=== PATIENT | male | born 1995 | race Two or more races ===

== ENCOUNTER 2017-11-01 19:18 | Emergency (ER) | payer MEDICAID ==
[~2017-11-01] VITALS: Ht 162.6 cm; Wt 81.6 kg
[2017-11-01 20:30] LABS: Basophils # (auto) 0.1 uL; Eosinophils # (auto) 0.1 uL; Eosinophils % (auto) 0.5 % (0.0-7.0); Mean Corpuscular Volume 84.6 fL (80.0-100.0); White Blood Cell 13.8 10^3/uL (4.4-10.8)
[2017-11-01 20:33] LABS: Basophils % (auto) 1.1 % (0.0-2.0); Hematocrit 46.2 % (41.0-53.0); Hemoglobin 14.9 g/dL (13.5-17.5); Lymphocytes # (auto) 1.7 uL; Lymphocytes % (auto) 12.4 % (10.0-50.0); Mean Corpuscular Hemoglobin 27.3 pg (28.0-32.0); Mean Corpuscular Hgb Conc. 32.3 g/dL (32.0-36.0); Monocytes # (auto) 1.9 uL; Monocytes % (auto) 13.8 % (0.0-12.0); Neutrophils % (auto) 72.2 % (37.0-80.0); Nucleated Red Blood Cells % 0.4 %; Platelet Count (auto) 310 10^3/uL (140-450); Red Blood Cells 5.46 10^6/uL (4.5-5.90)
[2017-11-01 20:34] LABS: Urine Bacteria NONE SEEN /hpf (None Seen); Urine Blood Negative /uL (Negative); Urine WBC 1 /hpf (0 - 3)
[2017-11-01 20:58] LABS: Alanine Aminotransferase 71 U/L (16-61); Albumin 3.5 g/dL (3.4-5.0); Alkaline Phosphatase 141 U/L (45-117); Anion Gap 8 (5-15); Aspartate Aminotransferase 43 U/L (15-37); BUN/Creatinine Ratio 17.9; Bilirubin, Total 0.2 mg/dL (0.2-1.0); Blood Urea Nitrogen 19 mg/dL (7-18); Calcium 8.5 mg/dL (8.5-10.1); Carbon Dioxide 22 mmol/L (21-32); Chloride 109 mmol/L (98-107); GFR African American 112 mL/min; GFR Non-African American 93 mL/min; Glucose 89 mg/dL (74-106); Magnesium 2.3 mg/dL (1.6-2.6); Potassium 3.9 mmol/L (3.5-5.1); Sodium 139 mmol/L (136-145); Total Protein 7.7 g/dL (6.4-8.2)
[2017-11-01 21:53] LABS: INR 0.88 (0.9-1.15); Partial Thromboplastin Time 26.8 sec (22.64-33.71); Prothrombin Time 9.6 sec (9.37-12.3)
[2017-11-01 23:07] VITALS: BP 135/75
== END 2017-11-02 00:23 | disposition home or self-care (01) ==
LOC: ER 19:18
DX: S46.912A Strain of unspecified muscle, fascia and tendon at shoulder and upper arm level, left arm, initial encounter (principal); F12.10 Cannabis abuse, uncomplicated; Z88.0 Allergy status to penicillin; Z88.1 Allergy status to other antibiotic agents; Z88.8 Allergy status to other drugs, medicaments and biological substances; X58.XXXA Exposure to other specified factors, initial encounter; Y93.89 Activity, other specified; Y99.8 Other external cause status; Y92.89 Other specified places as the place of occurrence of the external cause
CPT/HCPCS: 36415; 71045; 73200; 80053; 81001; 83735; 84484; 85025; 85379; 85610; 85730; 93005

== ENCOUNTER 2019-03-24 14:31 | Emergency (ER) | payer MEDICAID ==
[~2019-03-24] VITALS: Ht 160 cm; Wt 81.6 kg
[2019-03-24 15:46] LABS: Hematocrit 33.3 % (41.0-53.0)
[2019-03-24 15:47] LABS: Mean Corpuscular Hemoglobin 30.8 pg (28.0-32.0); Mean Corpuscular Hgb Conc. 32.9 g/dL (32.0-36.0); Mean Corpuscular Volume 93.6 fL (80.0-100.0); Platelet Count (auto) 583 10^3/uL (140-450); Red Blood Cells 3.56 10^6/uL (4.5-5.90); Red Cell Distribution Width 17.4 % (11.8-14.3); White Blood Cell 8.1 10^3/uL (4.4-10.8)
[2019-03-24 15:52] LABS: Basophils % (manual) 0 (0.0-2.0); Blast Cells 0; Eosinophils % (manual) 0 (0-7); Myelocytes % 0; Promyelocytes % 0; Reactive Lymphocytes 0
[2019-03-24 16:01] LABS: Albumin 3.5 g/dL (3.4-5.0); Anion Gap 8 (5-15); Blood Urea Nitrogen 17 mg/dL (7-18); Calcium 9.3 mg/dL (8.5-10.1); Carbon Dioxide 24 mmol/L (21-32); Chloride 103 mmol/L (98-107); Glucose 156 mg/dL (74-106); Potassium 4.5 mmol/L (3.5-5.1); Sodium 135 mmol/L (136-145)
[2019-03-24 16:06] LABS: Alanine Aminotransferase 104 U/L (16-61); Alkaline Phosphatase 249 U/L (45-117); Aspartate Aminotransferase 83 U/L (15-37); BUN/Creatinine Ratio 19.1; Bilirubin, Total 0.2 mg/dL (0.2-1.0); GFR African American 135 mL/min; GFR Non-African American 112 mL/min; Total Protein 7.9 g/dL (6.4-8.2)
[2019-03-24 16:18] LABS: INR < 0.93 (0.9-1.15); Partial Thromboplastin Time 27.9 sec (23.64-32.05)
[2019-03-24] MEDS ORDERED: SODIUM CHLORIDE 0.9% 1,000 ML IV ONE (16:30)
[2019-03-24 16:39] LABS: Band Neutrophils % (manual) 3; Lymphocytes % (manual) 14 (10.0-50.0); Metamyelocytes % 1; Monocytes % (manual) 9 (0-12)
[2019-03-24] MEDS ORDERED: MORPHINE SULFATE 4 MG/ML SYR/VIAL IV ONE (16:45)
[2019-03-24] MEDS ORDERED: ONDANSETRON HCL 4 MG/2 ML VIAL IV ONE (16:45)
[2019-03-24 18:04] VITALS: BP 124/77
== END 2019-03-24 16:48 | disposition home or self-care (01) ==
LOC: ER 14:35
DX: R07.89 Other chest pain (principal); C92.00 Acute myeloblastic leukemia, not having achieved remission; Z88.0 Allergy status to penicillin; Z88.1 Allergy status to other antibiotic agents; Z88.6 Allergy status to analgesic agent
CPT/HCPCS: 36415; 71046; 80053; 84484; 85007; 85027; 85610; 85730; 93005; 94761; 96374; 96375; 99284; J2270; J2405; J7030

== ENCOUNTER 2019-06-19 13:12 | Inpatient (IN) | payer MEDICAID ==
[~2019-06-19] VITALS: Ht 157.5 cm; Wt 79.3 kg
[2019-06-19] MEDS ORDERED: SODIUM CHLORIDE 0.9% 1,000 ML IV ONE ×2 (13:33→13:45)
[2019-06-19] MEDS ORDERED: ONDANSETRON HCL 4 MG/2 ML VIAL IV ONE (13:45)
[2019-06-19] MEDS ORDERED: MORPHINE SULFATE 4 MG/ML SYR/VIAL IV ONE (13:45)
[2019-06-19] MEDS ORDERED: ACETAMINOPHEN 500 MG TAB PO ONE (14:30)
[2019-06-19 14:51] LABS: Albumin 3.3 g/dL (3.4-5.0); BUN/Creatinine Ratio 16.4; Calcium 8.8 mg/dL (8.5-10.1); Magnesium 1.7 mg/dL (1.6-2.6)
[2019-06-19 14:54] LABS: Bilirubin, Total 0.3 mg/dL (0.2-1.0)
[2019-06-19 15:53] LABS: Basophils # (auto) 0 uL; Eosinophils # (auto) 0.1 uL; Lymphocytes # (auto) 0.2 uL; Nucleated Red Blood Cells % 0.5 %
[2019-06-19 16:00] LABS: Eosinophils % (auto) 0.9 % (0.0-7.0); Hemoglobin 8.8 g/dL (13.5-17.5); Lymphocytes % (auto) 2.1 % (10.0-50.0); Mean Corpuscular Hemoglobin 29.6 pg (28.0-32.0); Mean Corpuscular Hgb Conc. 32.8 g/dL (32.0-36.0); Mean Corpuscular Volume 90.3 fL (80.0-100.0); Monocytes % (auto) 9.9 % (0.0-12.0); Neutrophils # (auto) 9.1 uL; Neutrophils % (auto) 87.1 % (37.0-80.0); Platelet Count (auto) 513 10^3/uL (140-450); Red Blood Cells 2.98 10^6/uL (4.5-5.90); Red Cell Distribution Width 19.5 % (11.8-14.3); White Blood Cell 10.4 10^3/uL (4.4-10.8)
[2019-06-19] MEDS ORDERED: IBUPROFEN 600 MG TAB PO ONE (16:00)
[2019-06-19] MEDS ORDERED: LACTULOSE 20Gm/30ML SOLN PO PRN (19:00)
[2019-06-19] MEDS ORDERED: MORPHINE SULF INJ 2 MG/ML SYRINGE 1ML IV PRN (19:00)
[2019-06-19] MEDS ORDERED: NITROGLYCERIN 0.4 MG SL TAB SL PRN (19:00)
[2019-06-19] MEDS ORDERED: ACETAMINOPHEN 500 MG TAB PO PRN (19:00)
[2019-06-19] MEDS ORDERED: LEVOFLOXACIN 500MG 100 ML IV ONE (19:00)
[2019-06-19 19:31] LABS: Urine Bacteria NONE SEEN /hpf (None Seen); Urine Blood 1+ /uL (Negative); Urine Specific Gravity 1.022 (1.001-1.035); Urine WBC 2 /hpf (0 - 3)
[2019-06-19 20:03] LABS: CRP High Sensitivity 6.73 mg/dL (< 0.3)
[2019-06-19] MEDS: SODIUM CHLORIDE 0.9% 1,000 ML IV SCH (20:11)
[2019-06-19 20:25] VITALS: BP 156/80
--- NOTE | 2019-06-19 20:25 | NUR ---
Telemetry admit from [facility] admitted to Telemetry unit after SBAR received. Patient oriented to Deedee santana RN, unit, room, bed, and unit policies regarding patient care and visiting hours. Patient now on continuous telemetry monitoring, tele box # [id number] and telemetry reading on arrival to unit is sinus tach.[id number]. Patient placed on bedside oxygen, weighed by bed scale and encouraged to call if they need something. All questions and concerns addressed, patient verbalized understanding. Note:Came per bed awake ,alert oriented x 4, placed in the bed comfortably, vital signs checked.
[2019-06-19] MEDS: metroNIDAZOLE 500MG/100ML 100 ML IV SCH (21:36)
[2019-06-19] MEDS: METHADONE HCL 10 MG TAB PO SCH (21:36)
[2019-06-19] MEDS: SULFAMETHOX W/TRIMETH(800/160MG) DS TAB PO SCH (21:48)
--- NOTE | 2019-06-19 22:00 | NUR ---
Picture taken in the wound in the abdomen, dressing done with wound cleanser and covered with optifoam dressing, patient said its the surgical site that gets infected.
[2019-06-19] MEDS: HYDROmorphone HCL 2 MG/ML VL IV PRN (22:13)
[2019-06-19] MEDS: PROMETHAZINE HCL 25 MG/ML 1ML IV PRN (22:14)
[2019-06-20] MEDS ORDERED: BUTACAP OR (01:08)
[2019-06-20] MEDS ORDERED: METF500S PO (01:08)
[2019-06-20] MEDS ORDERED: LEVO-28 PO (01:08)
[2019-06-20] MEDS ORDERED: CYCL0.05 EACHEYE (01:08)
[2019-06-20] MEDS ORDERED: HYDR8TAB46 PO (01:08)
[2019-06-20] MEDS ORDERED: SENN1TAB5 PO (01:08)
[2019-06-20] MEDS ORDERED: CYCL1TAB18 PO (01:08)
[2019-06-20] MEDS ORDERED: DRON10CA8 PO (01:08)
[2019-06-20] MEDS ORDERED: ONDA-143 PO (01:08)
[2019-06-20] MEDS ORDERED: PREG150C PO (01:08)
[2019-06-20] MEDS ORDERED: ATOR10TA52 PO (01:08)
[2019-06-20] MEDS ORDERED: METF-489 PO (01:08)
[2019-06-20] MEDS ORDERED: BIOT5TAB3 PO (01:08)
[2019-06-20] MEDS ORDERED: FLUT500M2 INH (01:08)
[2019-06-20] MEDS ORDERED: SULF800T7 PO (01:08)
[2019-06-20] MEDS ORDERED: MONT10TA34 PO (01:08)
[2019-06-20] MEDS ORDERED: HYDR2.5L TOP (01:08)
[2019-06-20] MEDS ORDERED: BISA-4 PO (01:08)
[2019-06-20] MEDS ORDERED: CHOL20007 PO (01:08)
[2019-06-20] MEDS ORDERED: POSA1TAB PO (01:08)
[2019-06-20] MEDS ORDERED: LACT10SO3 PO (01:08)
[2019-06-20] MEDS ORDERED: LEV100T PO (01:08)
[2019-06-20] MEDS ORDERED: [UNRECOGNIZED DRUG - CODE] PO (01:08)
[2019-06-20] MEDS ORDERED: ALBU108A5 IN (01:08)
[2019-06-20] MEDS ORDERED: MAGN1POW XX (01:08)
[2019-06-20] MEDS ORDERED: DICL-176 PO (01:08)
[2019-06-20] MEDS ORDERED: ESOM1CAP4 PO (01:08)
[2019-06-20] MEDS ORDERED: POLY33504 PO (01:08)
[2019-06-20] MEDS ORDERED: CLOT1CRE13 TOP (01:08)
[2019-06-20] MEDS ORDERED: METH5TAB2 PO (01:08)
[2019-06-20] MEDS: HYDROmorphone HCL 2 MG/ML VL IV PRN ×4 (02:40→19:58)
[2019-06-20] MEDS: SODIUM CHLORIDE 0.9% 1,000 ML IV SCH ×3 (04:54→15:15)
[2019-06-20 05:00] VITALS: BP 150/91
[2019-06-20] MEDS: metroNIDAZOLE 500MG/100ML 100 ML IV SCH ×2 (05:21→14:53)
[2019-06-20] MEDS: HYDROmorphone HCL 2 MG TAB PO PRN ×3 (05:45→18:10)
[2019-06-20 05:59] LABS: Potassium 4.1 mmol/L (3.5-5.1)
[2019-06-20] MEDS: PROMETHAZINE HCL 25 MG/ML 1ML IV PRN (05:59)
[2019-06-20 06:12] LABS: Albumin 2.8 g/dL (3.4-5.0); BUN/Creatinine Ratio 16.7; Bilirubin, Total 0.3 mg/dL (0.2-1.0); Calcium 7.4 mg/dL (8.5-10.1); Total Protein 6.9 g/dL (6.4-8.2)
--- NOTE | 2019-06-20 07:18 | NUR ---
Report given to Cait Mckeon, patient is resting using his notebook.
[2019-06-20 09:00] VITALS: BP 149/83
[2019-06-20] MEDS: METHADONE HCL 10 MG TAB PO SCH (09:43)
[2019-06-20] MEDS: SULFAMETHOX W/TRIMETH(800/160MG) DS TAB PO SCH (09:44)
[2019-06-20 09:54] LABS: Basophils # (auto) 0 uL; Basophils % (auto) 0.2 % (0.0-2.0); Eosinophils # (auto) 0.2 uL; Eosinophils % (auto) 1.5 % (0.0-7.0); Hematocrit 29.4 % (41.0-53.0); Hemoglobin 9.7 g/dL (13.5-17.5); Lymphocytes # (auto) 0.3 uL; Lymphocytes % (auto) 2.6 % (10.0-50.0); Mean Corpuscular Hemoglobin 29.9 pg (28.0-32.0); Mean Corpuscular Volume 90.7 fL (80.0-100.0); Monocytes # (auto) 1.1 uL; Neutrophils # (auto) 9.1 uL; Neutrophils % (auto) 85.7 % (37.0-80.0); Nucleated Red Blood Cells % 0.2 %; Platelet Count (auto) 541 10^3/uL (140-450); Red Blood Cells 3.25 10^6/uL (4.5-5.90); Red Cell Distribution Width 19.4 % (11.8-14.3); White Blood Cell 10.6 10^3/uL (4.4-10.8)
[2019-06-20] MEDS ORDERED: PANTOPRAZOLE 40 MG TAB PO SCH ×2 (10:00→22:00)
[2019-06-20] MEDS ORDERED: LEVOFLOXACIN 500MG 100 ML IV SCH (10:00)
--- NOTE | 2019-06-20 10:42 | NUR ---
WOUND CARE NOTE: Wound care in to see patient per wound care request "abdominal wall wound" that are noted present on admission. Bedside nurse took photograph of patient's wound upon admission for reference. Patient is 24 y/o male admitted for Abdominal Pain. Patient with history of CA, DM, high lipids. Patient is resting in bed in Rm. 271. Patient is awake,alert and oriented. He's in no stated pain at this time. Dr. Jones arrived at bedside to examine patient and to see the abdominal wound. Patient is self turn and reposition. His current Gj score is 20 Patient's anterior medial abdomen has 13x8cm pink collagen scar tissue with open wound measuring 9x4cm. Wound bed is pink/red, minimal serous drainage noted, no odor noted. Patient states that he had abdominal surgery "on December last year for popped ulcer". He added that "it got infected and they cleaned again". He added that he has home health nurse that change his abdominal wound dressing every "Saturday, Saturday and Saturday". Cleansed patient's abdominal wound with wound cleanser, patted dry with sterile gauze, applied Thera honey gauze to open wound, covered with abd pad and secured with Primapore tape. Patient tolerated well. Dr. Jones and YIMI Mendenhall at bedside. RECOMMENDATION: Nursing to continue EOD/PRN dressing change to abdominal wound per MD order, Dietary consult due to presence of wound, redistribute pressure points with pillows,continue monitoring by wound care while patient is hospitalized. Addendum: 06/20/19 at 1706 by Sammie Pugh RN Amended: Links added.
[2019-06-20 13:00] VITALS: BP 148/95
--- NOTE | 2019-06-20 13:20 | NUR ---
SPOKE TO ZEV INTEGRATION CONSULTANT ABOUT TRANSFER TO [facility]. [facility] ACCEPTING PH[address]IAN [address] LOVE. ZEV SAID SHE HAS TO GET AUTHORIZATION FROM INSURANCE FIRST. SHE WILL CALL ME BACK.
--- NOTE | 2019-06-20 13:55 | NUR ---
SPOKE TO ZEV WIRE DRAWING SETTER. SHE SAID SHE HAS AUTHORIZATION TO TRANSFER PATIENT BUT NO BED IS AVAILABLE AT THIS TIME. SHE WILL ALSO PUT PATIENT ON WILL CALL FOR [facility].
--- NOTE | 2019-06-20 16:11 | NUR ---
Weekend chief construction inspector-I received a page from nurse Mendenhall letting me know that this patient has order to transfer to [facility]. I called [facility] [phone] and spoke with Nadine in admitting. Requested items faxed by nurse Mendenhall to [phone]. I spoke with Sarah-[facility] Ekg Technician-she provided me with [facility] authorization number for [facility] [id number], and auth number for [facility] is [id number]. I provided [facility] with [facility] authorization number, I also placed [facility] on will call-provided them with the [facility] auth number [id number]. Per [facility] they will call nurse's station when bed becomes available-I relayed this information to nurse Mendenhall.
[2019-06-20 17:00] VITALS: BP 162/79
--- NOTE | 2019-06-20 17:24 | NUR ---
SPOKE TO PATIENT'S MOM WHO IS AT BEDSIDE INFORMED HER WE ARE JUST WAITING FOR A BED TO BE AVAILABLE THEN WE WILL TRANSPORT [facility]IA [facility] TO [facility] WITH ACCEPTING PHYSICIAN DR LOVE. PATIENT'S MOM VERBALIZED UNDERSTANDING.
--- NOTE | 2019-06-20 18:33 | NUR ---
CALLED REPORT TO SONYA Slater AT [facility]. BED [phone]
--- NOTE | 2019-06-20 19:09 | NUR ---
CALLED [facility] THEY WILL RAILROAD DINING CAR STEWARD/STEWARDESS PATIENT AT 19:40
--- NOTE | 2019-06-20 19:58 | NUR ---
GAVE REPORT TO [facility] ASSOCIATE BROKER MYNOR. ALL QUESTIONS ANSWERED MOM AT BEDSIDE AND WILL RIDE IN THE AMBULANCE WITH PATIENT TO [facility]. NO SIGNS OF DISTRESS.
== END 2019-06-20 20:00 | disposition short-term general hospital (02) | DRG 251 ==
LOC: ER 13:12 → TELE 13:13 → TELE-WESTW 20:31
PROVIDERS: ADMIT Internal Medicine; ATTEND Internal Medicine
DX: R10.11 Right upper quadrant pain (principal); D69.6 Thrombocytopenia, unspecified; E44.0 Moderate protein-calorie malnutrition; Z94.81 Bone marrow transplant status; E86.0 Dehydration; D63.8 Anemia in other chronic diseases classified elsewhere; E11.9 Type 2 diabetes mellitus without complications; F12.90 Cannabis use, unspecified, uncomplicated; G89.4 Chronic pain syndrome; E78.5 Hyperlipidemia, unspecified; E66.9 Obesity, unspecified; M25.519 Pain in unspecified shoulder; R31.9 Hematuria, unspecified; M25.559 Pain in unspecified hip; R50.9 Fever, unspecified; Z90.49 Acquired absence of other specified parts of digestive tract; Z88.0 Allergy status to penicillin; Z87.11 Personal history of peptic ulcer disease; Z88.1 Allergy status to other antibiotic agents; Z88.8 Allergy status to other drugs, medicaments and biological substances; Z68.32 Body mass index [BMI] 32.0-32.9, adult
CPT/HCPCS: 36415; 71045; 73020; 73060; 74176; 76705; 80053; 81001; 82150; 83605; 83690; 83735; 85007; 85025; 85027; 85652; 86141; 87040; 87086; 93005; 96361; 96365; 96375; G0378; J1956; J2405; J3490

== ENCOUNTER 2020-02-08 13:19 | Emergency (ER) | payer MEDICAID ==
[~2020-02-08] VITALS: Ht 157.5 cm; Wt 75.7 kg
[~2020-02-08 13:19] MED LIST: ALBU108A5 IN; ATOR10TA52 PO; BIOT5TAB3 PO; BISA-4 PO; BUTACAP OR; CHOL20007 PO; CLOT1CRE13 TOP; CYCL0.05 EACHEYE; CYCL10TA6 PO; DICL-176 PO; DRON10CA8 PO; ESOM1CAP4 PO; FLUT500M2 INH; HYDR2.5L TOP; HYDR8TAB46 PO; LACT10SO3 PO; LEV100T PO; LEVO-28 PO; MAGN1POW XX; METF-489 PO; METF500S PO; METH5TAB2 PO; MONT10TA34 PO; ONDA-143 PO; POLY33504 PO; POSA1TAB PO; PREG150C PO; SULF800T7 PO; [UNRECOGNIZED DRUG - CODE] PO; [UNRECOGNIZED DRUG - CODE] PO
[2020-02-08 14:48] LABS: Hematocrit 27.6 % (41.0-53.0); Hemoglobin 8.9 g/dL (13.5-17.5); Mean Corpuscular Hemoglobin 29.1 pg (28.0-32.0); Mean Corpuscular Hgb Conc. 32.3 g/dL (32.0-36.0); Mean Corpuscular Volume 90.1 fL (80.0-100.0); Platelet Count (auto) 337 10^3/uL (140-450); Red Blood Cells 3.06 10^6/uL (4.5-5.90); White Blood Cell 10.8 10^3/uL (4.4-10.8)
[2020-02-08 14:52] LABS: Red Cell Distribution Width 20.8 % (11.8-14.3)
[2020-02-08 14:54] LABS: Basophils % (manual) 0 (0.0-2.0); Blast Cells 0; Promyelocytes % 0; Reactive Lymphocytes 0
[2020-02-08 15:00] LABS: Urine Bacteria NONE SEEN /hpf (None Seen); Urine Blood Negative /uL (Negative); Urine Specific Gravity 1.027 (1.001-1.035); Urine WBC 2 /hpf (0 - 3)
[2020-02-08 15:05] LABS: Amylase 30 U/L (25-115); Lipase 207 U/L (73-393)
[2020-02-08 15:10] LABS: Albumin 3.3 g/dL (3.4-5.0); BUN/Creatinine Ratio 16.7; Calcium 9.2 mg/dL (8.5-10.1); Potassium 4.4 mmol/L (3.5-5.1)
[2020-02-08 15:12] LABS: Bilirubin, Total 0.2 mg/dL (0.2-1.0); Total Protein 7.8 g/dL (6.4-8.2)
[2020-02-08 16:21] LABS: Band Neutrophils % (manual) 5; Eosinophils % (manual) 1 (0-7); Lymphocytes % (manual) 4 (10.0-50.0); Metamyelocytes % 1; Monocytes % (manual) 6 (0-12); Myelocytes % 1
[2020-02-08] MEDS ORDERED: InsuLIN REG 1unit/0.01ml Soln (100units/ml) SC ONE (21:30)
[2020-02-08] MEDS ORDERED: HYDROmorphone HCL 2 MG/ML VL IM ONE (21:30)
[2020-02-08] MEDS ORDERED: ONDANSETRON ODT 4 MG TAB PO ONE (21:30)
[2020-02-08 22:55] VITALS: BP 127/83
== END 2020-02-08 23:14 | disposition home or self-care (01) ==
LOC: ER 13:19
DX: R10.31 Right lower quadrant pain (principal); E11.65 Type 2 diabetes mellitus with hyperglycemia; G89.29 Other chronic pain; E78.5 Hyperlipidemia, unspecified; Z90.89 Acquired absence of other organs; Z79.899 Other long term (current) drug therapy; Z88.1 Allergy status to other antibiotic agents; Z88.0 Allergy status to penicillin
CPT/HCPCS: 36415; 74176; 80053; 81001; 82150; 82962; 83690; 85007; 85027; 96372; 99284; J1170; Q0162

== ENCOUNTER 2020-08-12 13:28 | Inpatient (IN) | payer MEDICAID ==
[~2020-08-12] VITALS: Ht 160 cm; Wt 66.8 kg
[~2020-08-12 13:28] MED LIST changes: -DICL-176 PO; +DICL75TA3 PO; +SENN-180 PO; -[UNRECOGNIZED DRUG - CODE] PO
[2020-08-12 15:14] LABS: Basophils # (auto) 0 10 ^3/uL (0-0.2); Eosinophils # (auto) 0.1 10 ^3/uL (0-0.8); Eosinophils % (auto) 1.3 % (0.0-7.0); Neutrophils # (auto) 7.6 10 ^3/uL (1.6-8.6); Nucleated Red Blood Cells % 0.7 %; White Blood Cell 9.5 10^3/uL (4.4-10.8)
[2020-08-12 15:16] LABS: Hematocrit 23.6 % (41.0-53.0); Lymphocytes # (auto) 0.6 10 ^3/uL (0.4-5.4); Lymphocytes % (auto) 6.8 % (10.0-50.0); Mean Corpuscular Hemoglobin 31.8 pg (28.0-32.0); Mean Corpuscular Hgb Conc. 33.9 g/dL (32.0-36.0); Mean Corpuscular Volume 93.7 fL (80.0-100.0); Monocytes # (auto) 1.1 10 ^3/uL (0-1.3); Monocytes % (auto) 11.9 % (0.0-12.0); Platelet Count (auto) 316 10^3/uL (140-450); Red Blood Cells 2.52 10^6/uL (4.5-5.90)
[2020-08-12 15:29] LABS: Albumin 3.3 g/dL (3.4-5.0); Calcium 8.8 mg/dL (8.5-10.1); Potassium 4.1 mmol/L (3.5-5.1)
[2020-08-12 15:32] LABS: Bilirubin, Total 0.4 mg/dL (0.2-1.0); Total Protein 7.7 g/dL (6.4-8.2)
[2020-08-12] MEDS ORDERED: IOHEXOL 350 MG/ML 100ML IJ ONE (15:55)
[2020-08-12] MEDS ORDERED: ENOXAPARIN SOD 80 MG/0.8ML SYRINGE SC ONE (17:00)
[2020-08-12] MEDS ORDERED: DOCUSATE SOD 100 MG CAP PO PRN (19:45)
[2020-08-12] MEDS ORDERED: ALUM & MAG HYDROX-SIMETH LIQ(MAALOX) 30 ML PO PRN (19:45)
[2020-08-12] MEDS ORDERED: MORPHINE SULF INJ 2 MG/ML SYRINGE 1ML IV PRN ×2 (19:45)
[2020-08-12] MEDS ORDERED: HYDROcodone-ACET 5/325MG TAB PO PRN (19:45)
[2020-08-12] MEDS ORDERED: LORazepam 0.5 MG TAB PO PRN (19:45)
[2020-08-12] MEDS ORDERED: NITROGLYCERIN 0.4 MG SL TAB SL PRN ×2 (19:45)
[2020-08-12 21:18] LABS: Cholesterol 276 mg/dL (< 200); HDL Cholesterol 41 mg/dL (40-59); Triglycerides 483 mg/dL (< 150)
[2020-08-12] MEDS: MORPHINE SULF INJ 2 MG/ML SYRINGE 1ML IV PRN (22:02)
[2020-08-12] MEDS: SODIUM CHLORIDE 0.9% 1,000 ML IV SCH (22:02)
[2020-08-13] MEDS: ENOXAPARIN SOD 80 MG/0.8ML SYRINGE SC SCH ×2 (06:00→18:41)
[2020-08-13] MEDS: MORPHINE SULF INJ 2 MG/ML SYRINGE 1ML IV PRN ×3 (06:39→21:30)
[2020-08-13 07:56] LABS: Basophils # (auto) 0 10 ^3/uL (0-0.2); Basophils % (auto) 0.1 % (0.0-2.0); Eosinophils # (auto) 0.1 10 ^3/uL (0-0.8); Hemoglobin 7.7 g/dL (13.5-17.5); Monocytes # (auto) 1.5 10 ^3/uL (0-1.3); Neutrophils # (auto) 7.3 10 ^3/uL (1.6-8.6); Platelet Count (auto) 308 10^3/uL (140-450); White Blood Cell 9.3 10^3/uL (4.4-10.8)
[2020-08-13 07:57] LABS: Hematocrit 21.8 % (41.0-53.0); Lymphocytes # (auto) 0.4 10 ^3/uL (0.4-5.4); Lymphocytes % (auto) 4.4 % (10.0-50.0); Mean Corpuscular Hemoglobin 32.9 pg (28.0-32.0); Mean Corpuscular Hgb Conc. 35.3 g/dL (32.0-36.0); Mean Corpuscular Volume 93.1 fL (80.0-100.0); Neutrophils % (auto) 78.5 % (37.0-80.0); Nucleated Red Blood Cells % 1.4 %; Red Blood Cells 2.34 10^6/uL (4.5-5.90)
[2020-08-13 08:03] LABS: Red Cell Distribution Width 20.5 % (11.8-14.3)
[2020-08-13 08:30] LABS: INR 0.99 (0.9-1.15); Partial Thromboplastin Time 29.9 sec (23.0-31.2)
[2020-08-13 08:42] LABS: Albumin 3.2 g/dL (3.4-5.0); BUN/Creatinine Ratio 20.8; Calcium 8.6 mg/dL (8.5-10.1); Magnesium 2.3 mg/dL (1.6-2.6); Potassium 3.6 mmol/L (3.5-5.1)
[2020-08-13 08:45] LABS: Bilirubin, Total 0.2 mg/dL (0.2-1.0); Total Protein 7.2 g/dL (6.4-8.2)
[2020-08-13] MEDS: ONDANSETRON HCL 4 MG/2 ML VIAL IV PRN (09:03)
[2020-08-13] MEDS: SODIUM CHLORIDE 0.9% 1,000 ML IV SCH (12:45)
[2020-08-13] MEDS: HYDROmorphone HCL 2 MG/ML VL IV PRN (17:29)
[2020-08-13 20:42] LABS: % Iron Saturation 13.8 % (20-55)
[2020-08-13 22:00] VITALS: BP 142/82
[2020-08-14] MEDS: HYDROmorphone HCL 2 MG/ML VL IV PRN ×5 (00:15→21:56)
[2020-08-14] MEDS: ONDANSETRON HCL 4 MG/2 ML VIAL IV PRN ×2 (02:35→09:15)
[2020-08-14] MEDS: MORPHINE SULF INJ 2 MG/ML SYRINGE 1ML IV PRN (03:29)
[2020-08-14] MEDS ORDERED: diphenhdrAMINE HCL 50 MG/1 ML VL IM ONE (04:15)
[2020-08-14 05:00] VITALS: BP 117/79
[2020-08-14] MEDS: SODIUM CHLORIDE 0.9% 1,000 ML IV SCH ×2 (05:07→21:55)
[2020-08-14] MEDS ORDERED: diphenhdrAMINE HCL 50 MG/1 ML VL IV ONE (05:15)
[2020-08-14] MEDS: ENOXAPARIN SOD 80 MG/0.8ML SYRINGE SC SCH (05:56)
[2020-08-14 08:00] VITALS: BP 136/88
[2020-08-14 08:25] LABS: Basophils # (auto) 0 10 ^3/uL (0-0.2); Eosinophils # (auto) 0.1 10 ^3/uL (0-0.8); Neutrophils # (auto) 9.6 10 ^3/uL (1.6-8.6); White Blood Cell 11.6 10^3/uL (4.4-10.8)
[2020-08-14 08:27] LABS: Basophils % (auto) 0.1 % (0.0-2.0); Eosinophils % (auto) 1.1 % (0.0-7.0); Hematocrit 24.3 % (41.0-53.0); Lymphocytes # (auto) 0.5 10 ^3/uL (0.4-5.4); Mean Corpuscular Hemoglobin 31.3 pg (28.0-32.0); Monocytes # (auto) 1.4 10 ^3/uL (0-1.3); Monocytes % (auto) 12.3 % (0.0-12.0); Neutrophils % (auto) 82.5 % (37.0-80.0); Nucleated Red Blood Cells % 1.6 %; Platelet Count (auto) 329 10^3/uL (140-450); Red Blood Cells 2.56 10^6/uL (4.5-5.90)
[2020-08-14 08:45] LABS: Albumin 3.4 g/dL (3.4-5.0); Calcium 8.9 mg/dL (8.5-10.1); Potassium 3.7 mmol/L (3.5-5.1)
[2020-08-14 08:48] LABS: BUN/Creatinine Ratio 12.9; Bilirubin, Total 0.3 mg/dL (0.2-1.0); Total Protein 7.8 g/dL (6.4-8.2)
[2020-08-14 08:51] LABS: Red Cell Distribution Width 20.7 % (11.8-14.3)
[2020-08-14] MEDS: LORazepam 2MG/ML-1ML VIAL IV PRN ×3 (10:48→20:18)
[2020-08-14] MEDS ORDERED: CYCLOBENZAPRINE HCL 10 MG TAB PO PRN (12:45)
[2020-08-14 16:00] VITALS: BP 135/80
[2020-08-14] MEDS: PREGABALIN CAPSULE 75 MG CAP PO SCH (21:55)
[2020-08-14] MEDS: APIXABAN 5 MG TAB PO SCH (21:55)
[2020-08-14] MEDS ORDERED: DEXTROSE (50%) 50ML SYRG IV PRN (22:30)
[2020-08-15 00:30] VITALS: BP 149/83
[2020-08-15 05:44] VITALS: BP 156/71
[2020-08-15] MEDS: HYDROmorphone HCL 2 MG/ML VL IV PRN ×4 (06:15→19:11)
[2020-08-15] MEDS: InsuLIN REG 1unit/0.01ml Soln (100units/ml) SC SCH ×4 (06:26→22:00)
[2020-08-15] MEDS: ACCU-CHEK COMFORT CURVE STRIP VI SCH ×4 (06:26→22:17)
[2020-08-15] MEDS: LEVOTHYROXINE SODIUM 100 MCG TAB PO SCH (06:33)
[2020-08-15 08:00] VITALS: BP 153/79
[2020-08-15 08:15] LABS: Lymphocytes # (auto) 0.4 10 ^3/uL (0.4-5.4); Neutrophils # (auto) 9.5 10 ^3/uL (1.6-8.6)
[2020-08-15 08:18] LABS: Basophils # (auto) 0.1 10 ^3/uL (0-0.2); Basophils % (auto) 0.5 % (0.0-2.0); Eosinophils # (auto) 0.1 10 ^3/uL (0-0.8); Eosinophils % (auto) 1.3 % (0.0-7.0); Hematocrit 23.2 % (41.0-53.0); Hemoglobin 7.8 g/dL (13.5-17.5); Lymphocytes % (auto) 3.5 % (10.0-50.0); Mean Corpuscular Hemoglobin 31.7 pg (28.0-32.0); Mean Corpuscular Hgb Conc. 33.7 g/dL (32.0-36.0); Mean Corpuscular Volume 94.3 fL (80.0-100.0); Monocytes # (auto) 1.5 10 ^3/uL (0-1.3); Neutrophils % (auto) 81.7 % (37.0-80.0); Nucleated Red Blood Cells % 1.7 %; Platelet Count (auto) 314 10^3/uL (140-450); Red Blood Cells 2.46 10^6/uL (4.5-5.90); White Blood Cell 11.7 10^3/uL (4.4-10.8)
[2020-08-15 08:27] LABS: Red Cell Distribution Width 20.3 % (11.8-14.3)
[2020-08-15 08:32] LABS: Calcium 8.5 mg/dL (8.5-10.1); Potassium 3.4 mmol/L (3.5-5.1)
[2020-08-15 08:35] LABS: BUN/Creatinine Ratio 9.5; Bilirubin, Total 0.3 mg/dL (0.2-1.0); Total Protein 7.1 g/dL (6.4-8.2)
[2020-08-15] MEDS: PREGABALIN CAPSULE 75 MG CAP PO SCH ×2 (10:15→22:17)
[2020-08-15] MEDS ORDERED: POTASSIUM CHLORIDE 20 MEQ, LIDOCAINE 1% (LOCAL ANESTH.) 2 ML in SODIUM CHL 0.9% 100 ML IV ONE (10:15)
[2020-08-15] MEDS ORDERED: levoFLOXacin 500 MG TAB PO ONE (10:15)
[2020-08-15 10:23] LABS: Folate (Folic Acid) > 24.00 ng/mL (5.38-24)
[2020-08-15] MEDS: APIXABAN 5 MG TAB PO SCH ×2 (11:27→22:16)
[2020-08-15] MEDS: SODIUM CHLORIDE 0.9% 1,000 ML IV SCH (14:25)
[2020-08-15 16:00] VITALS: BP 133/98
[2020-08-15] MEDS: LORazepam 2MG/ML-1ML VIAL IV PRN (22:17)
[2020-08-15 22:27] VITALS: BP 140/92
[2020-08-16 05:00] VITALS: BP 125/86
[2020-08-16] MEDS: InsuLIN REG 1unit/0.01ml Soln (100units/ml) SC SCH ×2 (06:24→12:10)
[2020-08-16] MEDS: ACCU-CHEK COMFORT CURVE STRIP VI SCH ×2 (06:24→12:10)
[2020-08-16] MEDS: LEVOTHYROXINE SODIUM 100 MCG TAB PO SCH (06:24)
[2020-08-16] MEDS: HYDROmorphone HCL 2 MG/ML VL IV PRN ×3 (06:50→14:58)
[2020-08-16] MEDS: SODIUM CHLORIDE 0.9% 1,000 ML IV SCH (07:05)
[2020-08-16 09:00] VITALS: BP 117/77
[2020-08-16] MEDS: APIXABAN 5 MG TAB PO SCH (09:57)
[2020-08-16] MEDS: PREGABALIN CAPSULE 75 MG CAP PO SCH (09:58)
[2020-08-16] MEDS ORDERED: levoFLOXacin 500 MG TAB PO SCH (10:00)
[2020-08-16 10:28] LABS: Basophils # (auto) 0.1 10 ^3/uL (0-0.2); Basophils % (auto) 0.5 % (0.0-2.0); Eosinophils # (auto) 0.1 10 ^3/uL (0-0.8); Eosinophils % (auto) 1.1 % (0.0-7.0); Hematocrit 26.4 % (41.0-53.0); Hemoglobin 8.7 g/dL (13.5-17.5); Lymphocytes # (auto) 0.4 10 ^3/uL (0.4-5.4); Lymphocytes % (auto) 3.2 % (10.0-50.0); Mean Corpuscular Hemoglobin 31.5 pg (28.0-32.0); Mean Corpuscular Hgb Conc. 33.1 g/dL (32.0-36.0); Monocytes # (auto) 1.3 10 ^3/uL (0-1.3); Monocytes % (auto) 11.7 % (0.0-12.0); Neutrophils # (auto) 9.4 10 ^3/uL (1.6-8.6); Neutrophils % (auto) 83.5 % (37.0-80.0); Nucleated Red Blood Cells % 2.9 %; Platelet Count (auto) 363 10^3/uL (140-450); Red Blood Cells 2.77 10^6/uL (4.5-5.90); White Blood Cell 11.2 10^3/uL (4.4-10.8)
[2020-08-16 10:46] LABS: Calcium 8.5 mg/dL (8.5-10.1); Potassium 3.4 mmol/L (3.5-5.1)
[2020-08-16 10:51] LABS: BUN/Creatinine Ratio 10.7; Bilirubin, Total 0.3 mg/dL (0.2-1.0); Total Protein 7.5 g/dL (6.4-8.2)
[2020-08-16] MEDS ORDERED: POTASSIUM CHL 20 Meq TABLET PO ONE (11:45)
[2020-08-16] MEDS: LORazepam 2MG/ML-1ML VIAL IV PRN (13:37)
[2020-08-21] MEDS ORDERED: APIXABAN 5 MG TAB PO SCH (22:00)
== END 2020-08-16 16:00 | disposition home or self-care (01) | DRG 134 ==
LOC: ER 13:28 → OVERFLOW 13:29 → TELE-CENTR 08-13 18:14
PROVIDERS: ADMIT Hospitalist; ATTEND Internal Medicine
DX: I26.99 Other pulmonary embolism without acute cor pulmonale (principal); B17.9 Acute viral hepatitis, unspecified; E44.1 Mild protein-calorie malnutrition; K21.9 Gastro-esophageal reflux disease without esophagitis; K29.70 Gastritis, unspecified, without bleeding; E03.9 Hypothyroidism, unspecified; E78.5 Hyperlipidemia, unspecified; G89.4 Chronic pain syndrome; Z94.81 Bone marrow transplant status; Z85.6 Personal history of leukemia; E11.9 Type 2 diabetes mellitus without complications; F11.20 Opioid dependence, uncomplicated; Z79.01 Long term (current) use of anticoagulants; Z79.51 Long term (current) use of inhaled steroids; Z79.84 Long term (current) use of oral hypoglycemic drugs; Z86.711 Personal history of pulmonary embolism; Z88.1 Allergy status to other antibiotic agents; Z88.0 Allergy status to penicillin; D63.8 Anemia in other chronic diseases classified elsewhere; Z90.49 Acquired absence of other specified parts of digestive tract; Z20.822 Contact with and (suspected) exposure to COVID-19
CPT/HCPCS: 36415; 71275; 80053; 80061; 82270; 82607; 82746; 82962; 83036; 83540; 83550; 83735; 84100; 84484; 85025; 85610; 85730; 87040; 87426; 93306; 96372; 99291; G0378; J1815; J2001; J2405

== ENCOUNTER 2024-11-04 19:26 | Inpatient (IN) | payer MEDICARE, MEDICAID ==
[~2024-11-04] VITALS: Ht 157.5 cm; Wt 63.0 kg
[~2024-11-04 19:26] MED LIST changes: -BISA-4 PO; +BISA-65 PO; +BUTA1CAP38 OR; -BUTACAP OR; -CLOT1CRE13 TOP; +CLOT1CRE51 TOP; +CYCL-839 PO; -CYCL10TA6 PO; -HYDR2.5L TOP; +HYDR2.5L4 TOP; -LEV100T PO; -LEVO-28 PO; +LEVO-849 PO; +LEVO500T91 PO; -METF500S PO; +METF500S3 PO; +METH5TAB10 PO; -METH5TAB2 PO; +MONT-8 PO; -MONT10TA34 PO; +SULF800T23 PO; -SULF800T7 PO
--- NOTE | 2024-11-04 19:43 | ED.PDOC ---
History of present illness HPI Comments HPI: 29 year old male presents to the ED with chief complaint of hyperglycemia. Patient reports that he had an appointment today with [facility] for follow up on previous bone marrow transplant and was found to have a BG level of 539. Patient relays that recently over the past few days his BG has been reading from 400-500s, however, the only symptom he has felt has been increased urinary frequency and feeling "hot." Patient states he was advised by [facility] to come to the ED for further evaluation. Patient denies any abdominal pain, N/V/D, dizziness, headache, fever, chills, numbness, or weakness. Initial Vitals: Temp: 99F BP: 139/87 HR: 110 RR: 20 O2 Sat: 97% Medical History: DM, HLD, AML Leukemia, PE, chronic pain syndrome, GVHD Surgical History: Appendectomy, Bilateral hip replacement, bone marrow transplant, Pericardiectomy, peptic ulcer disease surgery with complications and revision. Social History: Denies smoking. Occasional ETOH use, +Marijuana use. Lives at home. Medications: Eliquis, Glipizide, Jardiance Allergies: Penicillin, Amoxicillin, Cefepime, Cephalexin, Metoclopramide, Penicillins, Vancomycin HPI: Poor Historian. Patient denies any symptoms. He was sent here by his doctor's office when he was found with a incidental high blood sugar level. Patient states compliance with his medications. REVIEW OF SYSTEMS: CONSTITUTIONAL: Denies acute: fever, diaphoresis, chills, HEAD: Denies acute: headache, photophobia Eyes: Denies acute: Double vision, vision loss, eye pain, eye discharge. EARS: Denies acute: tinnitus, hearing loss, ear discharge, ear pain, THROAT: Denies acute: sore throat, swelling, difficulty swallowing , pain with swallowing, change in voice. NECK: Denies acute: neck pain, neck swelling, stiff neck. HEART: Denies acute : chest pain, palpitations, LUNGS: Denies acute: SOB, wheezing, cough, hemoptysis ABDOMEN: Denies acute: abdominal pain, Nausea, Vomiting, diarrhea, melena , hematemesis, hematochezia SKIN: Denies acute: rash, redness, lesions, itchiness. EXTREMITIES: Denies acute: calf pain, numbness, tingling, weakness, denies pain in extremity. Denies acute: Low back pain. Neuro: Denies acute: focal neurological deficit, motor or sensory focal neurological deficit, tremors, seizure like activity, confusion, dizziness, change in mental status, loss of bowel or bladder function, cauda equina like symptoms. : Denies acute: dysuria, hematuria, flank pain, increase in urinary frequency. PSYCH: Denies acute: hallucination, suicidal ideation, homicidal ideation. PHYSICAL EXAM: General: ----no----acute distress, awake and alert. Head: normocephalic, atraumatic. Neck: supple, trachea is midline, no swelling. Throat: Normal phonation. Dry oral mucosa. Eyes:, no erythema, no purulent discharge, no proptosis, no icterus. Heart: regular rate, regular rhythm, no significant murmur appreciated. Lungs: no apparent respiratory distress, Able to speak in full sentences. No wheezing, no rhonchi, no crackles. No stridors Clear to auscultation bilaterally. Abdomen: non tender to palpation, non distended, soft, no guarding, no rebound, + bowel sounds. Noted old surgical scars. Neuro: Awake, Alert, oriented to name, self, situation, follows commands GCS=15. Speech is normal. Skin: no petechia, no purpura, no cyanosis, non-pale, not jaundice. Lower extremities: --no - Pitting edema no deformity, no focal swelling, no calf TTP. Makes eye contact. moves all four extremities. Face: no apparent facial droop. Ambulating in the ED independently. ED COURSE: Chief Complaint: Hyperglycemia Time Seen by MD: 19:32 Primary Care Provider: [facility] History of present illness: Nurses Notes, Medications, Allergies Allergies: Coded Allergies: Amoxicillin (Verified Allergy, Unknown, 11/01/17) Cefepime (Verified Allergy, Unknown, 11/01/17) Cephalexin (Verified Allergy, Unknown, 11/01/17) Metoclopramide (Verified Allergy, Unknown, 08/12/20) Penicillins (Verified Allergy, Unknown, 11/01/17) Vancomycin (Verified Allergy, Unknown, 11/01/17) Home Meds Reported Medications Lidocaine (Lidocaine) 5 % Pad, 1 PATCH TOP DAILY 11/05/24 Baclofen (Baclofen) 10 Mg Tab, 1 TAB PO TID 11/05/24 Hydrocortisone Base (Hydrocortisone) 5 Mg Tab, TAB PO 11/05/24 Pravastatin Sodium (PRAVACHOL TABLET) 20 Mg Tb, 1 TAB PO DAILY, #30 TAB 5 Refills 11/05/24 Glimepiride (Glimepiride) 4 Mg Tab, 1 TAB PO BID, #180 TAB 1 Refill 11/05/24 Apixaban Base (ELIQUIS) 2.5 Mg Tab, 2.5 MG PO BID, TAB 11/05/24 Posaconazole (Posaconazole) 100 Mg Tab, 100 MG PO TID, TAB 11/05/24 Pregabalin (Lyrica) 150 Mg Cap, 1 CAP PO Q8HR, #60 CAP 5 Refills 11/05/24 Sulfamethoxazole W/Trimethopri (Trimethoprim/Sulfamethoxa) 1 Tab Tab, 1 TAB PO BID, #14 TAB 06/20/19 Senna (HM SENNA) 8.6 Mg Tab, 8.6 MG PO, TAB 06/20/19 Pregabalin (Lyrica) 150 Mg Cap, 1 CAP PO BID, #60 CAP 5 Refills 06/20/19 Polyethylene Glycol (MIRALAX 17GM PWD) 17 Gm Pw, 17 GRAMS PO DAILY, #527 GRAMS 06/20/19 Ondansetron (Zofran) 8 Mg Tab, 1 TAB PO Q8HR, #30 TAB 1 Refill 06/20/19 Posaconazole (Noxafil) 100 Mg Tab, 100 MG PO, TAB 06/20/19 Montelukast Sodium (MONTELUKAST SODIUM) 10 Mg Tab, 1 TAB PO DAILY, #30 TAB 5 Refills 06/20/19 Methadone Hcl (Methadone Hcl) 5 Mg Tab, 1 TAB PO QID, #120 TAB 06/20/19 Metformin Hydrochloride (METFORMIN HCL ER) 500 Mg Tab, 1 TAB PO DAILY, #90 TAB 1 Refill 06/20/19 Metformin HCl (Metformin Hydrochloride) 500 Mg/5 Ml Dang, 500 MG PO, ML 06/20/19 Magnesium Amino Acid Chelate (Magnesium Amino Acid Batsheva) 20 % Pow, 133 MG XX, POW 06/20/19 Levothyroxine Sodium (SYNTHROID TABLET) 100 Mcg Tb, 1 TAB PO DAILY, #30 TAB 5 Refills 06/20/19 Levofloxacin Hemihydrate (LEVOFLOXACIN) 500 Mg Tab, 500 MG PO DAILY, MG 06/20/19 Lactulose (Lactulose) 10 Gm/15 Ml Dang, 10 GM PO, ML 06/20/19 Hydromorphone Hcl (Dilaudid) 8 Mg Tab, 1 TAB PO Q4HR, #180 TAB 06/20/19 Hydrocortisone (Topical) (Hydrocortisone) 2.5 % Lot, 1 APPLIC TOP, APPLIC 06/20/19 Fluticasone-Salmeterol (Advair Diskus 500/50) 1 Puff Ih, 1 PUFF INH BID, #1 INHALER 5 Refills 06/20/19 Esomeprazole Magnesium (Nexium 24Hr) 20 Mg Cap, 20 MG PO, CAP 06/20/19 Dronabinol (Dronabinol) 10 Mg Cap, 10 MG PO, CAP 06/20/19 Diclofenac Sodium (Diclofenac Sodium Dr) 75 Mg Tab, 1 TAB PO BID, #60 TAB 1 Refill 06/20/19 Cyclosporine (Ophth) (Restasis) 0.05 % Emu, 1 DROP EACHEYE BID, #60 VIAL 3 Refills 06/20/19 Cyclobenzaprine Hcl (Cyclobenzaprine Hcl) 10 Mg Tab, 5 MG PO Q8HP PRN for FOR MUSCLE SPASM for 30 Days, MG 06/20/19 Clotrimazole (Clotrimazole) 1 % Cre, 1 APPLIC TOP Q12HR for 30 Days, APPLIC 06/20/19 Cholecalciferol (VITAMIN D3) 2,000 Unit Tab, 1 TAB PO DAILY, #30 TAB 5 Refills 06/20/19 Mmfexrdbee-Ypdogrnznqfab-Jfuit (Butalbital/Apap/Caffeine/) Codeine Cap, 40 MG OR, CAP 06/20/19 Bisacodyl (Bisacodyl Ec) 5 Mg Tab, 5 MG PO DAILYP PRN for FOR CONSTIPATION, MG 06/20/19 Biotin (Vitamin H) (BIOTIN) 5 Mg Tab, 5 MG PO, TAB 06/20/19 Beta Carotene (A-Abel-25) 25,000 Unit Cap, 53431 UNIT PO, CAP 06/20/19 Atorvastatin Calcium (ATORVASTATIN CALCIUM) 10 Mg Tab, 10 TAB PO DAILY, #30 TAB 5 Refills 06/20/19 Albuterol Sulfate (Albuterol Sulfate Hfa) 108 Mcg/Act Aer, 108 MCG IN, AER 06/20/19 Discontinued Reported Medications Pregabalin (Pregabalin) 100 Mg Cap, 1 CAP PO TID 11/05/24 Posaconazole (Posaconazole Dr) 100 Mg Tab, PO 11/05/24 Was a procedure done? Was a procedure done?: No Differential Diagnosis (DM) Differential Diagnosis: Dehydration, Diabetic Coma, DKA, Electrolyte Abnormality, Hyperglycemia, Hyperosmolar State, UTI X-Ray, Labs, Meds, VS Vital Signs Date Time Temp Pulse Resp B/P (MAP) Pulse Ox O2 Delivery O2 Flow Rate FiO2 11/05/24 00:30 98.4 65 14 130/62 (84) 99 98.4 11/04/24 19:30 99.0 110 20 139/87 (104) 97 99.0 Lab Test 11/04/24 23:05 11/04/24 23:00 11/04/24 22:31 11/04/24 22:00 Range/Units Blood Gas Specimen Type Arterial Blood Gas Sample Site Left radial Blood Gas Patient Temperature 37.0 Arterial Blood Date Drawn [id number] Arterial Blood pH 7.424 7.350-7.450 Arterial Blood Partial Pressure CO2 34.5 L 35.0-48.0 mmHg Arterial Blood Partial Pressure O2 77.1 L 83.0-108.0 mmHg Arterial Blood HCO3 22.1 21.0-28.0 mmol/L Arterial Blood Oxygen Saturation 94.5 94.0-98.0 % Arterial Blood Base Excess -2.0 -2.0-3.0 mmol/L Arterial Blood Oxyhemoglobin 93.5 L 94.0-98.0 % Arterial Blood Carboxyhemoglobin 0.6 0.5-1.5 % Arterial Blood Methemoglobin 0.5 0.0-1.5 % Alec Test Yes Blood Gas Total Hemoglobin 8.30 L 13.5-17.5 g/dL Blood Gas Modality Room air FiO2 % 21.0 Specimen Drawn By Ignacia machado Lactic Acid Level 1.8 0.4-2.0 mmol/L POC Glucose 314 H 70-106 mg/dl Troponin I High Sensitivity 37 </=54 ng/L Test 11/04/24 21:00 11/04/24 19:45 11/04/24 19:44 Range/Units White Blood Count 8.0 4.4-10.8 10^3/uL Red Blood Count 2.58 L 4.5-5.90 10^6/uL Hemoglobin 8.8 L 13.5-17.5 g/dL Hematocrit 23.9 L 41.0-53.0 % Mean Corpuscular Volume 92.7 80.0-100.0 fL Mean Corpuscular Hemoglobin 34.3 H 28.0-32.0 pg Mean Corpuscular Hemoglobin Concent 37.1 H 32.0-36.0 g/dL Red Cell Distribution Width 19.3 H 11.8-14.3 % Platelet Count 315 140-450 10^3/uL Mean Platelet Volume 8.9 6.9-10.8 fL Neutrophils (%) (Auto) 37.0-80.0 % Lymphocytes (%) (Auto) 10.0-50.0 % Monocytes (%) (Auto) 0.0-12.0 % Basophils (%) (Auto) 0.0-2.0 % Neutrophils # (Auto) 1.6-8.6 10 ^3/uL Lymphocytes # (Auto) 0.4-5.4 10 ^3/uL Monocytes # (Auto) 0-1.3 10 ^3/uL Differential Total Cells Counted 100.0 100 Immature Granulocytes % 1 Neutrophils % (Manual) 69 37.0-80.0 Band Neutrophils % (Manual) 7 Lymphocytes % (Manual) 13 10.0-50.0 Monocytes % (Manual) 9 0-12 Eosinophils % (Manual) 1 0-7 Basophils % (Manual) 0 0.0-2.0 Metamyelocytes % (manual) 1 Myelocytes % (Manual) 0 Promyelocytes % (Manual) 0 Blast Cells % (Manual) 0 Reactive Lymphocytes 0 Platelet Estimate Adequate Large Platelets Few Anisocytosis (manual) Moderate Tear Drop Cells Few Sodium Level 133 L 136-145 mmol/L Potassium Level 3.6 3.5-5.1 mmol/L Chloride Level 100 98-107 mmol/L Carbon Dioxide Level 22 20-31 mmol/L Anion Gap 11 5-15 Blood Urea Nitrogen 27 H 9-23 mg/dL Creatinine 1.46 H 0.700-1.30 mg/dL Glomerular Filtration Rate Calc 66 >90 mL/min BUN/Creatinine Ratio 18.5 10.0-20.0 Serum Glucose 387 H 74-106 mg/dL Lactic Acid Level 3.4 *H 0.4-2.0 mmol/L Calcium Level 9.4 8.7-10.4 mg/dL Magnesium Level 2.2 1.6-2.6 mg/dL Total Bilirubin 0.2 0.2-1.0 mg/dL Aspartate Amino Transferase (AST) 76 H 13-40 U/L Alanine Aminotransferase (ALT) 79 H 7-40 U/L Alkaline Phosphatase 68 46-116 U/L Troponin I High Sensitivity 36 </=54 ng/L Total Protein 7.1 5.7-8.2 g/dL Albumin 4.8 3.2-4.8 g/dL Beta-Hydroxybutyric Acid 0.197 < 0.4 mmol/L Urine Color Colorless Yellow Urine Clarity Clear Clear Urine pH 5.0 5.0-9.0 Urine Specific [place] 1.027 1.001-1.035 Urine Protein Negative Negative Urine Ketones Negative Negative Urine Blood Negative Negative /uL Urine Nitrite Negative Negative Urine Bilirubin Negative Negative Urine Urobilinogen Normal Negative mg/dL Urine Leukocyte Esterase Negative Negative /uL Urine RBC <1 0 - 3 /hpf Urine Microscopic WBC 0-3 /HPF Urine Squamous Epithelial Cells None seen <5 /hpf Urine Bacteria None seen None Seen /hpf Urine Glucose 4+ H Normal mg/dL POC Glucose 512 *H 70-106 mg/dl Time of 1ST Reevaluation: 20:32 Reevaluation 1ST: Unchanged Patient Education/Counseling: Diagnosis, Treatment Family Education/Counseling: No Family Present Comments Patient presented with the above HPI.---hyperglycemia---workup was initiated. patient was found with the above mentioned diagnosis. the following medications were ordered: please refer to order lists of meds and tests obtained by myself Dr. Marie. Patient ED course and VS have been stabilized. Patient has been reassessed in the ED and remained in a stable condition. Pertinent incidental findings were discussed with the patient and/or family. Patient/family voices understanding and is agreeable with plan. Patient has been observed in the ED adequate length of time to insure improvement/stability. Escalation of care considered: Consideration of escalation to observation or admission Patient was ADMITTED to the medicine team for further evaluation and treatment of their presentation. All the reports of any imaging studies that were ordered by myself were reviewed by myself. Departure 1 Departure Time of Disposition: 21:58 Impression: Primary Impression: Hyperglycemia due to diabetes mellitus Additional Impression: Anemia Disposition: ADMITTED INPATIENT Admit to: Tele Condition: Guarded Discharged With: Self Critical Care Note Critical Care Time?: Yes (35 min-critical care time only) I personally scribed for ROSE MARIE DO ([email or web address]) on 11/04/24 at 19:43. Electronically submitted by Kaushal Browne ([email or web address]). ROSE MARIE DO Nov 04, 2024 19:43
[2024-11-04] MEDS: SODIUM CHLORIDE 0.9% 1,000 ML IV ONE (19:59)
[2024-11-04] MEDS: InsuLIN REG 1unit/0.01ml Soln (100units/ml) IV ONE (21:15)
[2024-11-04 21:30] LABS: Urine Bacteria None Seen /hpf (None Seen)
[2024-11-04 21:33] LABS: Hematocrit 23.9 % (41.0-53.0); Hemoglobin 8.8 g/dL (13.5-17.5); Red Blood Cells 2.58 10^6/uL (4.5-5.90)
[2024-11-04 21:37] LABS: Mean Corpuscular Hemoglobin 34.3 pg (28.0-32.0); Mean Corpuscular Volume 92.7 fL (80.0-100.0); Platelet Count (auto) 315 10^3/uL (140-450); Red Cell Distribution Width 19.3 % (11.8-14.3)
[2024-11-04 21:44] LABS: Mean Corpuscular Hgb Conc. 37.1 g/dL (32.0-36.0)
[2024-11-04 21:46] LABS: Albumin 4.8 g/dL (3.2-4.8); Alkaline Phosphatase 68 U/L (46-116); Anion Gap 11 (5-15); BUN/Creatinine Ratio 18.5 (10.0-20.0); Calcium 9.4 mg/dL (8.7-10.4); Carbon Dioxide 22 mmol/L (20-31); Chloride 100 mmol/L (98-107); Magnesium 2.2 mg/dL (1.6-2.6); Potassium 3.6 mmol/L (3.5-5.1); Total Protein 7.1 g/dL (5.7-8.2)
[2024-11-04 21:47] LABS: Basophils % (manual) 0 (0.0-2.0); Blast Cells 0; Myelocytes % 0; Promyelocytes % 0; Reactive Lymphocytes 0
[2024-11-04 21:55] LABS: Lactic Acid w/Reflex 3.4 mmol/L (0.4-2.0)
[2024-11-04 21:56] LABS: Bilirubin, Total 0.2 mg/dL (0.2-1.0); Blood Urea Nitrogen 27 mg/dL (9-23); Glucose 387 mg/dL (74-106); Sodium 133 mmol/L (136-145)
[2024-11-04 22:01] LABS: Alanine Aminotransferase 79 U/L (7-40)
[2024-11-04 22:02] LABS: Aspartate Aminotransferase 76 U/L (13-40)
[2024-11-04 22:19] LABS: Urine Blood Negative /uL (Negative); Urine Clarity Clear (Clear); Urine Color Colorless (Yellow); Urine Protein, UAD Negative (Negative); Urine Specific Gravity 1.027 (1.001-1.035); Urine Squamous Epithelial Cell None Seen /hpf (<5); Urine Urobilinogen Normal (Negative)
[2024-11-04 22:53] LABS: Band Neutrophils % (manual) 7; Eosinophils % (manual) 1 (0-7); Lymphocytes % (manual) 13 (10.0-50.0); Metamyelocytes % 1; Monocytes % (manual) 9 (0-12)
[2024-11-04 22:54] LABS: Platelet Estimate Adequate
[2024-11-04 22:57] LABS: Anisocytosis Moderate
[2024-11-04 22:58] LABS: Large Platelets FEW; Tear Drop Cells FEW
[2024-11-05] VITALS (7 sets, daily range): BP systolic 129–152; BP diastolic 81–91; PULSE 82–110; RESP 12–20; TEMP 98–99; O2SAT 96–100
[2024-11-05] MEDS: INSULIN LANTUS (GLARGINE) 1 /0.01ml (100units/ml) SC SCH (01:45)
[2024-11-05] MEDS ORDERED: DEXTROSE (50%) 50ML SYRG IV PRN (01:45)
--- NOTE | 2024-11-05 01:50 | DVHHPRES ---
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 According to the patient, for the last couple of days his blood glucose has been ranging 400-500. He had a video appointment with his doctor at [facility] today, upon checking his blood glucose at the time it was 539, and patient was told to go to the ER. In the ER, patient was noted to have a blood glucose level of 512, lactic acid 3.4 an anion gap of 11. Associated symptoms include urinary frequency and increased thirst. 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, zwkwc-jefqlt-hmha disease, diabetes, dyslipidemia, pulmonary embolism, asthma, hypothyroidism, chronic pain syndrome Past Surgical History Perforated gastric ulcer leading to surgery, hip replacement surgery, pericardiectomy Past Social History Smoking: Denies Alcohol: Rarely Drugs: Smokes marijuana daily, 10 joints per day Review of Systems Constitutional: Yes: Malaise; No: Fever, Chills, Sweats, Weakness, Other Eyes: No: Pain, Vision change, Conjunctivae inflammation, Eyelid inflammation, Other, Redness ENT: No: Ear pain, Ear discharge, Nose pain, Nose discharge, Nose congestion, Mouth pain, Mouth swelling, Throat pain, Throat swelling, Other Respiratory: No: Cough, Dry, Shortness of breath, SOB with excertion, Wheezing, Hemoptysis, Pleuritic Pain, Sputum, Wheezing, Other Cardiovascular: No: Chest Pain, Palpitations, Orthopnea, Paroxysmal Noc. Dyspnea, Edema, Lt Headedness, Other Gastrointestinal: Nausea; No: Vomiting, Abdominal Pain, Diarrhea, Constipation, Melena, Hematochezia, Other Genitourinary: No Dysuria; Frequency; No Incontinence, No Hematuria, No Retent ion, No Other Musculoskeletal: No: other, neck pain, shoulder pain, arm pain, back pain, hand pain, leg pain, foot pain Skin: No: Rash, Lesions, Jaundice, Bruising, Other Neurological: No: Weakness, Numbness, Incoordination, Change in speech, Confusion, Seizures, Other Allergies: Coded Allergies: Amoxicillin (Verified Allergy, Unknown, 11/01/17) Cefepime (Verified Allergy, Unknown, 11/01/17) Cephalexin (Verified Allergy, Unknown, 11/01/17) Metoclopramide (Verified Allergy, Unknown, 08/12/20) Penicillins (Verified Allergy, Unknown, 11/01/17) Vancomycin (Verified Allergy, Unknown, 11/01/17) Exam Vital Signs Vital Signs Date Time Temp Pulse Resp B/P (MAP) Pulse Ox O2 Delivery O2 Flow Rate FiO2 11/04/24 19:30 99.0 110 20 139/87 (104) 97 99.0 General Appearance: Alert, Oriented X3, Cooperative, No acute distress HEENT: Atraumatic, PERRLA, EOMI, Mucous membr. moist/pink Respiratory: Clear to auscultation, Normal air movement Cardiovascular: Regular rate Abdominal: Normal bowel sounds, No tenderness Extremities: No edema Skin: No rashes, No significant lesion Neuro: Normal gait, Normal speech Psych/Mental Status: Mental status NL, Mood NL Labs/Xrays Labs Test 11/04/24 23:05 11/04/24 23:00 11/04/24 22:31 11/04/24 22:00 Range/Units Blood Gas Specimen Type Arterial Blood Gas Sample Site Left radial Blood Gas Patient Temperature 37.0 Arterial Blood Date Drawn [id number] Arterial Blood pH 7.424 7.350-7.450 Arterial Blood Partial Pressure CO2 34.5 L 35.0-48.0 mmHg Arterial Blood Partial Pressure O2 77.1 L 83.0-108.0 mmHg Arterial Blood HCO3 22.1 21.0-28.0 mmol/L Arterial Blood Oxygen Saturation 94.5 94.0-98.0 % Arterial Blood Base Excess -2.0 -2.0-3.0 mmol/L Arterial Blood Oxyhemoglobin 93.5 L 94.0-98.0 % Arterial Blood Carboxyhemoglobin 0.6 0.5-1.5 % Arterial Blood Methemoglobin 0.5 0.0-1.5 % Alec Test Yes Blood Gas Total Hemoglobin 8.30 L 13.5-17.5 g/dL Blood Gas Modality Room air FiO2 % 21.0 Specimen Drawn By Senior Physical Therapist luke machado Lactic Acid Level 1.8 0.4-2.0 mmol/L POC Glucose 314 H 70-106 mg/dl Troponin I High Sensitivity 37 </=54 ng/L Test 11/04/24 21:00 11/04/24 19:45 Range/Units White Blood Count 8.0 4.4-10.8 10^3/uL Red Blood Count 2.58 L 4.5-5.90 10^6/uL Hemoglobin 8.8 L 13.5-17.5 g/dL Hematocrit 23.9 L 41.0-53.0 % Mean Corpuscular Volume 92.7 80.0-100.0 fL Mean Corpuscular Hemoglobin 34.3 H 28.0-32.0 pg Mean Corpuscular Hemoglobin Concent 37.1 H 32.0-36.0 g/dL Red Cell Distribution Width 19.3 H 11.8-14.3 % Platelet Count 315 140-450 10^3/uL Mean Platelet Volume 8.9 6.9-10.8 fL Neutrophils (%) (Auto) 37.0-80.0 % Lymphocytes (%) (Auto) 10.0-50.0 % Monocytes (%) (Auto) 0.0-12.0 % Basophils (%) (Auto) 0.0-2.0 % Neutrophils # (Auto) 1.6-8.6 10 ^3/uL Lymphocytes # (Auto) 0.4-5.4 10 ^3/uL Monocytes # (Auto) 0-1.3 10 ^3/uL Differential Total Cells Counted 100.0 100 Immature Granulocytes % 1 Neutrophils % (Manual) 69 37.0-80.0 Band Neutrophils % (Manual) 7 Lymphocytes % (Manual) 13 10.0-50.0 Monocytes % (Manual) 9 0-12 Eosinophils % (Manual) 1 0-7 Basophils % (Manual) 0 0.0-2.0 Metamyelocytes % (manual) 1 Myelocytes % (Manual) 0 Promyelocytes % (Manual) 0 Blast Cells % (Manual) 0 Reactive Lymphocytes 0 Platelet Estimate Adequate Large Platelets Few Anisocytosis (manual) Moderate Tear Drop Cells Few Sodium Level 133 L 136-145 mmol/L Potassium Level 3.6 3.5-5.1 mmol/L Chloride Level 100 98-107 mmol/L Carbon Dioxide Level 22 20-31 mmol/L Anion Gap 11 5-15 Blood Urea Nitrogen 27 H 9-23 mg/dL Creatinine 1.46 H 0.700-1.30 mg/dL Glomerular Filtration Rate Calc 66 >90 mL/min BUN/Creatinine Ratio 18.5 10.0-20.0 Serum Glucose 387 H 74-106 mg/dL Calcium Level 9.4 8.7-10.4 mg/dL Magnesium Level 2.2 1.6-2.6 mg/dL Total Bilirubin 0.2 0.2-1.0 mg/dL Aspartate Amino Transferase (AST) 76 H 13-40 U/L Alanine Aminotransferase (ALT) 79 H 7-40 U/L Alkaline Phosphatase 68 46-116 U/L Total Protein 7.1 5.7-8.2 g/dL Albumin 4.8 3.2-4.8 g/dL Beta-Hydroxybutyric Acid 0.197 < 0.4 mmol/L Urine Color Colorless Yellow Urine Clarity Clear Clear Urine pH 5.0 5.0-9.0 Urine Specific [place] 1.027 1.001-1.035 Urine Protein Negative Negative Urine Ketones Negative Negative Urine Blood Negative Negative /uL Urine Nitrite Negative Negative Urine Bilirubin Negative Negative Urine Urobilinogen Normal Negative mg/dL Urine Leukocyte Esterase Negative Negative /uL Urine RBC <1 0 - 3 /hpf Urine Microscopic WBC 0-3 /HPF Urine Squamous Epithelial Cells None seen <5 /hpf Urine Bacteria None seen None Seen /hpf Urine Glucose 4+ H Normal mg/dL Assessment/Plan Assessment/Plan Severe hyperglycemia Type 2 diabetes, uncontrolled, Hb A1c 13.8 Lactic acidosis, now resolved - IV NS 500 cc bolus - insulin Lantus 9 units q.p.m. - insulin lispro 3 units t.i.d. 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 Thornton Plan discussed with: Patient, Other (RN) My Orders Orders - SAMINA SINGER RESIDENT Procedure Category Date Status Time Admit ADMIT 11/05/24 Transmitted 01:44 Allergies CORTNEY 11/05/24 Transmitted 01:44 Code Status CODE 11/05/24 Transmitted 01:44 Complete Blood Count LAB 11/06/24 Verified 04:00 Comprehensive LAB 11/06/24 Verified Metabolic Panel 04:00 Condition: Unstable CORTNEY 11/05/24 Transmitted 01:44 Sequential CORTNEY 11/05/24 Transmitted Compression Device Notify Md Of Changes [facility] 11/05/24 Transmitted From Base 01:44 Stat Ekg For Chest CORTNEY 11/05/24 Transmitted Pain 01:44 Hemoglobin A1c LAB 11/05/24 Transmitted 01:44 Insulin Lantus PHA 11/05/24 Transmitted (Glargine) (Lantus) 01:45 Insulin Lispro PHA 11/05/24 Transmitted (Human) (Humalog) 08:00 Glucose Blood PHA 11/05/24 Transmitted (Accu-Chek Comfort 04:00 Mild Sliding Scale PHA 11/05/24 Transmitted 04:00 Dextrose 50% Syringe PHA 11/05/24 Transmitted 01:45 Date of Service: Nov 05, 2024 Billing Provider: JACOB THORNTON MD Common Visit Codes: [id number] INP/OBS CARE (HIGH) SAMINA SINGER RESIDENT Nov 05, 2024 01:50 JACOB THORNTON MD Nov 05, 2024 09:58
[2024-11-05] MEDS ORDERED: IPRATROPIUM BROM 0.5 MG/2.5ML INH SOL NEB PRN (02:00)
[2024-11-05] MEDS ORDERED: ALBUTEROL SULF 2.5 MG/0.5ML(0.5%) NEB SOLN NEB PRN (02:00)
[2024-11-05] MEDS: SODIUM CHLORIDE 0.9% 500 ML IV ONE (02:26)
[2024-11-05] MEDS: ACCU-CHEK COMFORT CURVE STRIP VI SCH (04:10)
[2024-11-05] MEDS: InsuLIN REG 1unit/0.01ml Soln (100units/ml) SC SCH (04:13)
[2024-11-05 07:50] LABS: % Iron Saturation 23.9 % (20-55)
[2024-11-05] MEDS: INSULIN LISPRO (HUMAN) 100 UNITS/ML ML SC SCH (08:32)
[2024-11-05] MEDS: ATORVASTATIN 20 MG TAB PO SCH (08:36)
[2024-11-05] MEDS: SODIUM CHLORIDE 0.9% 1,000 ML IV SCH (09:44)
--- NOTE | 2024-11-05 09:57 | DVHPNRES ---
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 According to the patient, for the last couple of days his blood glucose has been ranging 400-500. He had a video appointment with his doctor at [facility] today, upon checking his blood glucose at the time it was 539, and patient was told to go to the ER. In the ER, patient was noted to have a blood glucose level of 512, lactic acid 3.4 an anion gap of 11. Associated symptoms include urinary frequency and increased thirst. 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 Patient complaining of mild generalized weakness however he denies any other symptoms. As per patient he came to the hospital given uncontrolled diabetes. As per patient is compliant with antidiabetic medication however his diabetes not under control. No any other new complaints. ROS Eyes: No Pain, No Vision change, No Conjunctivae inflammation, No Eyelid inflammation, No Other, No Redness ENT: No Ear pain, No Ear discharge, No Nose pain, No Nose discharge, No Nose congestion, No Mouth pain, No Mouth swelling, No Throat pain, No Throat swelling, No Other Cardiovascular: No Chest Pain, No Palpitations, No Orthopnea, No Paroxysmal Noc. Dyspnea, No Edema, No Lt Headedness, No Other Respiratory: No Cough, No Dry, No Shortness of breath, No SOB with excertion, No Wheezing, No Hemoptysis, No Pleuritic Pain, No Sputum, No Other Gastrointestinal: No Nausea, No Vomiting, No Abdominal Pain, No Diarrhea, No Constipation, No Melena, No Hematochezia, No Other Genitourinary: No Dysuria, No Frequency, No Incontinence, No Hematuria, No Retention, No Other Musculoskeletal: No other, No neck pain, No shoulder pain, No arm pain, No back pain, No hand pain, No leg pain, No foot pain Skin: No Rash, No Lesions, No Jaundice, No Bruising, No Other Objective vital signs Vital Sign Date Time Temp Pulse Resp B/P (MAP) Pulse Ox O2 Delivery O2 Flow Rate FiO2 11/05/24 08:01 98.4 87 16 129/81 (97) 98 98.4 11/05/24 06:00 Room Air* 0 21 medications Current Medications Medications Dose Ordered Sig/Chantale Route Start Time Stop Time Status Last Admin Dose Admin Insulin Glargine 9 units HS SC 11/05/24 01:45 11/05/24 01:45 9 UNITS Insulin Human Lispro 3 units TIDWM SC 11/05/24 08:00 11/05/24 08:32 3 UNITS Diagnostic Test (Pha) 1 strip IQ4HR 11/05/24 04:00 11/05/24 07:57 1 STRIP Dextrose 50 ml UD PRN IV 11/05/24 01:45 Atorvastatin Calcium 10 mg DAILY PO 11/05/24 10:00 11/05/24 08:36 10 MG Ipratropium [place] 0.5 mg Q6HPRN PRN NEB 11/05/24 02:00 Albuterol 1.25 mg Q6HPRN PRN NEB 11/05/24 02:00 Sodium Chloride 1,000 ml @ 75 mls/hr [id number] IV 11/05/24 09:00 11/05/24 09:44 75 MLS/HR Examination General Appearance: Cooperative. Well developed. Well nourished. NAD Head Exam: Normal inspection Neck Exam: Normal inspection. Non-tender. Normal alignment Pulmonary/Respiratory: Chest non-tender. Clear bilateral breath sounds Cardiovascular/Chest: Regular rate and rhythm. No murmurs. No JVD. Peripheral Pulses: 2+ Radial (R). 2+ Radial (L). 2+ Pedal (R). 2+ Pedal (L) Abdominal Exam: Normal bowel sounds. Soft. Nontender. No hepatospenomegaly. No masses Ankle Exam: Negative ankle edema Lower extremities: Negative lower extremity edema Neuro/Mental Status: A&O x4. Coherent Thoughts/Psych: Normal thought pattern. Appropriate mood and affect. Good judgement and insight Appearance: In no acute distress Skin Exam: Normal inspection. Normal color. Warm. Dry laboratory and microbiology Laboratory Tests 11/04/24 21:00 Test 11/04/24 21:00 Range/Units Serum Glucose 387 H 74-106 mg/dL Problem List/Assessment/Plan Problem List/Assessment/Plan Type 2 diabetes, uncontrolled, Hb A1c 13.8 - IV NS 500 cc bolus , continue IV fluid normal saline 75 mL/hour - insulin Lantus 9 units q.p.m. - insulin lispro 3 units t.i.d. 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 Continue to monitor kidney function. -IV fluid normal saline 75 mL/hours Anemia, likely of chronic disease - iron panel - serum ferritin pending Dyslipidemia - resumed home medication atorvastatin 10 mg p.o. daily Hypothyroidism - serum TSH 0.03, ordered free T4. 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 Monitor. History of asthma, currently stable - ipratropium and albuterol med nebs Marijuana use disorder - counseled PUD prophylaxis: Protonix DVT prophylaxis: SCDs Goals of care: Full code, discussed for >16 minutes on 11/05/24 Plan discussed with patient Plan discussed with Dr. Thornton Plan discussed with: Patient, Other (RN) My Orders My Orders Orders - TRINI HANNAH Procedure Category Date Status Time Sodium Chloride 0.9% PHA 11/05/24 In Process 09:00 Free T4 (Free LAB 11/05/24 Logged Thyroxine) 09:49 Date of Service: Nov 05, 2024 Billing Provider: JACOB THORNTON MD Common Visit Codes: [id number] INP/OBS CARE(HIGH) TRINI HANNAH RESIDENT Nov 05, 2024 09:57 JACOB THORNTON MD Nov 05, 2024 18:13
[2024-11-05] MEDS ORDERED: LEVOTHYROXINE SODIUM 100 MCG TAB PO SCH (10:00)
[2024-11-05] MEDS ORDERED: APIX2.5T PO (10:31)
[2024-11-05] MEDS ORDERED: POSA100T4 PO (10:31)
[2024-11-05] MEDS ORDERED: PREG150C PO (10:31)
[2024-11-05] MEDS ORDERED: PRAV20TA3 PO (10:31)
[2024-11-05] MEDS ORDERED: GLIM4TAB42 PO (10:31)
[2024-11-05] MEDS ORDERED: POSA100T PO (10:32)
[2024-11-05] MEDS ORDERED: PREG100C66 PO (10:39)
[2024-11-05] MEDS ORDERED: BACL10TA PO (10:39)
[2024-11-05] MEDS ORDERED: LIDO1PAD55 TOP (10:39)
[2024-11-05] MEDS ORDERED: HYDR-4604 PO (10:39)
== END 2024-11-05 15:40 | disposition left against medical advice (07) | DRG 637 ==
LOC: ER 19:26 → OVERFLOW 11-05 01:44
PROVIDERS: ADMIT Internal Medicine; ATTEND Internal Medicine
DX: E11.65 Type 2 diabetes mellitus with hyperglycemia (principal); N17.0 Acute kidney failure with tubular necrosis; E87.20 Acidosis, unspecified; Z94.81 Bone marrow transplant status; D63.8 Anemia in other chronic diseases classified elsewhere; E78.5 Hyperlipidemia, unspecified; E03.9 Hypothyroidism, unspecified; F12.929 Cannabis use, unspecified with intoxication, unspecified; G89.4 Chronic pain syndrome; F12.90 Cannabis use, unspecified, uncomplicated; N18.30 Chronic kidney disease, stage 3 unspecified; Z96.643 Presence of artificial hip joint, bilateral; Z87.11 Personal history of peptic ulcer disease; Z85.6 Personal history of leukemia; Z88.1 Allergy status to other antibiotic agents; Z88.0 Allergy status to penicillin; Z88.8 Allergy status to other drugs, medicaments and biological substances; Z53.29 Procedure and treatment not carried out because of patient's decision for other reasons
CPT/HCPCS: 36415; 36600; 80053; 81001; 82010; 82728; 82805; 82962; 83036; 83540; 83550; 83605; 83735; 84439; 84443; 84484; 85007; 85027; 96361; 96374; G0378; J1815